=== PATIENT | male | born 1955 | race Caucasian/White ===

== ENCOUNTER 2019-01-13 21:58 | Observation (INO) | payer OTHER ==
[~2019-01-13] VITALS: Ht 182.9 cm; Wt 93.9 kg
[~2019-01-13 21:58] MED LIST: CEPH500 PO; HYDACE5 PO; MULVITMIND
[2019-01-14 00:40] LABS: BASOPHILS ABSOLUTE AUTO 0.05 K/mm3 (0.00-0.23); BASOPHILS PERCENT AUTO 0 % (0-2); EOSINOPHILS ABSOLUTE AUTO 0.11 K/mm3 (0.00-0.68); EOSINOPHILS PERCENT AUTO 1 % (0-6); Hemoglobin 15.3 g/dL (13.5-17.5); IMMATURE GRAN ABSOLUTE AUTO 0.05 K/mm3 (0.00-0.10); IMMATURE GRAN PERCENT AUTO 0 % (0-1); LYMPHOCYTES ABSOLUTE AUTO 1.28 K/mm3 (0.84-5.20); LYMPHOCYTES PERCENT AUTO 11 % (21-46); MONOCYTES ABSOLUTE AUTO 0.59 K/mm3 (0.16-1.47); MONOCYTES PERCENT AUTO 5 % (4-13); Mean Corpuscular HGB Conc 32.6 g/dL (31.5-36.5); Mean Corpuscular Volume 95 fL (80-100); Mean Platelet Volume 10.8 fL (9.1-12.4); NEUTROPHILS ABSOLUTE AUTO 9.16 K/mm3 (1.96-9.15); NEUTROPHILS PERCENT AUTO 82 % (41-73); Platelet Count 257 K/mm3 (150-400); RDW Coefficient Variation 12.7 % (11.7-14.2); Red Blood Cell Count 4.94 M/mm3 (4.30-5.90); White Blood Cell Count 11.24 K/mm3 (4.00-11.30)
[2019-01-14 00:58] LABS: Alanine Aminotransfer (ALT/SGP 34 U/L (12-78); Albumin, Blood 3.5 g/dL (3.4-5.0); Albumin/Globulin Ratio 0.9 (0.8-1.8); Alk Phos 74 U/L (50-136); Anion Gap 5 mmol/L (6-16); Aspartate Aminotrans (AST/SGOT 17 U/L (12-37); Bilirubin, Total 0.4 mg/dL (0.1-1.0); Blood Urea Nitrogen 13 mg/dL (8-24); Bun/Creatinine Ratio 15.2 (12.0-20.0); CO2, Blood 28 mmol/L (21-32); Calcium, Blood 8.5 mg/dL (8.5-10.1); Chloride, Blood 109 mmol/L (98-108); Creatinine, Blood 0.86 mg/dL (0.60-1.20); Globulin, Blood 3.8 g/dL (2.2-4.0); Glomerular Filtration Rate >60 (60-); Glucose, Blood 131 mg/dL (70-99); Potassium, Blood 4.3 mmol/L (3.5-5.5); Sodium, Blood 142 mmol/L (136-145); Total Protein, Blood 7.3 g/dL (6.4-8.2)
[2019-01-14 04:48] LABS: Source, Urine Clean Catch
[2019-01-14 04:50] LABS: Bilirubin, Urine Neg (Neg); Blood, Urine Neg (Neg); Glucose Qualitative, Urine Neg (Neg); Ketones, Urine Neg (Neg); Leukocyte Esterase, Urine Neg (Neg); Nitrite, Urine Neg (Neg); Protein, Urine Neg (Neg); Urobilinogen, Urine NORM (Normal)
[2019-01-14 04:51] LABS: Appearance, Urine Clear (Clear); Color, Urine Yellow (P-Yellow)
--- NOTE | 2019-01-14 06:46 | NUR ---
PT NEW ADMIT THIS AM FOR RUE FX. PT VSS SINCE ARRIVING TO FLOOR. PAIN MGD PER EMAR W/REP RELIEF. DRESSING CDI, ARM IN DLING, PT REP NO CHANGES IN SENSATION. PT NPO SINCE ARRIVING TO FLOOR, PLAN FOR OR THIS AM. PRESENT IN ROOM. WILL CONT TO MONITOR UNTIL REP GIVEN TO ONCOMING RN.
--- NOTE | 2019-01-14 12:25 | NUR ---
PATIENT TO OR. HAS CONT TO DENY NEED FOR PAIN MED. ACCOMPANYING.
--- NOTE | 2019-01-14 12:33 | NUR ---
History, Chart, Medications and Allergies reviewed before start of procedure.Lungs clear T/O to Auscultation. Patient confirms NPO status and agrees with scheduled surgery. Pre-Op teaching done. Pt verbalizes understanding.
--- NOTE | 2019-01-14 15:18 | NUR ---
01/14/19 1518 Jonnie Hardy ASSUMED CARE OF PATIENT [id number]
--- NOTE | 2019-01-14 18:40 | NUR ---
PATIENT RETURNED TO ROOM FROM PACU AT THIS TIME. AWAKE, GROGGY. TRANSFERRED TO BED. RUE ELEVATED ON PILLOWS. FINGERS SWOLLEN, PINK AND WARM. WIGGLES SMALL FINGER SLIGHLTY (PATIENT HAD A BLOCK.) VSS. O2 @ 2L TO KEEP SATS <90%. DENIES PAIN, NAUSEA. FAMILY AT BEDSIDE. CALL LIGHT IN REACH.
--- NOTE | 2019-01-15 06:31 | NUR ---
POD 1 S/P ORIF OF RFA. PT VSS T/O NIGHT, O2 TITRATED FROM 4L OXYMIZER TO 2LNC. I/S USE ENCOURAGED. DRESSING CDI, SLING IN PLACE. FINGERS REMAIN SWOLLEN AND NUMB W/NO CHANGES NOTED; CAP REFILL WNL, PT WEAKLY WIGGLES FINGERS. ARM ELEVATED IN BED. NEW BRUISING NOTED TO LEFT LOWER BACK. PAIN MGD PER EMAR. PT WALI REG PO, NO C/O N/V, IS VOIDING URINE W/O DIFFICULTY. PT UP OOB W/SBA, WALI WELL. PT USING CALL LIGHT FOR ASSISTANCE, WILL CONT TO MONITOR UNTIL REP GIVEN TO ONCOMING RN.
--- NOTE | 2019-01-15 14:21 | NUR ---
ASSUMED CARE OF PATIENT AT THIS TIME. PT UP TO CHAIR. PAIN TOLERABLE. PT STATES HE WOULD LIKE TO GO HOME TODAY. AWAITING DOCTOR ROUNDING.
[2019-01-15] MEDS ORDERED: OXYC5 PO (14:47)
[2019-01-15] MEDS ORDERED: CEPH500 PO (14:48)
--- NOTE | 2019-01-15 15:55 | NUR ---
DISCHARGE: PT DC TO HOME AT THIS TIME WITH SPOUSE. VERBALIZED UNDERSTANDING OF INSTRUCTIONS, FOLLOW UP, PROBLEMS TO REPORT AND MEDICATIONS. SCRIPTS GIVEN. IV'S DC'D WNL. PT LEFT VIA WHEELCHAIR TO CAR WITH BELONGINGS.
== END 2019-01-15 16:03 | disposition home or self-care (01) ==
LOC: ER 21:58 → SURS 21:59 → ER 01-14 04:09 → SURS 01-14 04:09 → ER 01-15 04:09 → SURS 01-15 04:09
PROVIDERS: Emergency Medicine; Orthopaedic Surgery; ADMIT Orthopaedic Surgery
PROC: 0PSK04Z Reposition Right Ulna with Internal Fixation Device, Open Approach (ICD-10-PCS; 2019-01-14)
PROC: 0PSH04Z Reposition Right Radius with Internal Fixation Device, Open Approach (ICD-10-PCS; principal; 2019-01-14 12:30)
DX: S52.501A Unspecified fracture of the lower end of right radius, initial encounter for closed fracture (principal); S52.601A Unspecified fracture of lower end of right ulna, initial encounter for closed fracture; Z23 Encounter for immunization; W01.0XXA Fall on same level from slipping, tripping and stumbling without subsequent striking against object, initial encounter; Z91.81 History of falling; Y93.01 Activity, walking, marching and hiking; Y92.89 Other specified places as the place of occurrence of the external cause; Y99.0 Civilian activity done for income or pay
CPT/HCPCS: 25605; 70450; 71045; 71260; 72125; 73090; 74177; 76000; 80053; 81003; 85025; 90471; 90714; 96365-59; 96375-59; 96376-59; 99153; 99285-25; C1713; J0690; J1170; J1885; J2250; J2370; J2405; J2550; J2704; J3010; J7030; J7120; Q9967

== ENCOUNTER → 2021-05-07 | Outpatient (CLI) | payer SELFPAY ==
[~2021-05-07] MED LIST changes: +OXYC5 PO
[2021-05-07 10:40] LABS: BASOPHILS ABSOLUTE AUTO 0.06 K/mm3 (0.00-0.23); BASOPHILS PERCENT AUTO 1 % (0-2); EOSINOPHILS ABSOLUTE AUTO 0.29 K/mm3 (0.00-0.68); EOSINOPHILS PERCENT AUTO 5 % (0-6); Hematocrit 46.8 % (37.0-53.0); Hemoglobin 16.1 g/dL (13.5-17.5); IMMATURE GRAN ABSOLUTE AUTO 0.01 K/mm3 (0.00-0.10); IMMATURE GRAN PERCENT AUTO 0 % (0-1); LYMPHOCYTES ABSOLUTE AUTO 2.25 K/mm3 (0.84-5.20); LYMPHOCYTES PERCENT AUTO 35 % (21-46); MONOCYTES ABSOLUTE AUTO 0.42 K/mm3 (0.16-1.47); MONOCYTES PERCENT AUTO 7 % (4-13); Mean Corpuscular HGB 30.7 pg (26.0-34.0); Mean Corpuscular HGB Conc 34.4 g/dL (31.5-36.5); Mean Corpuscular Volume 89 fL (80-100); Mean Platelet Volume 10.2 fL (9.1-12.4); NEUTROPHILS ABSOLUTE AUTO 3.44 K/mm3 (1.96-9.15); NEUTROPHILS PERCENT AUTO 53 % (41-73); Platelet Count 264 K/mm3 (150-400); RDW Standard Deviation 42.5 fL (35.1-46.3); Red Blood Cell Count 5.24 M/mm3 (4.30-5.90); White Blood Cell Count 6.47 K/mm3 (4.00-11.30)
[2021-05-07 11:04] LABS: Alanine Aminotransfer (ALT/SGP 33 U/L (12-78); Albumin, Blood 3.6 g/dL (3.4-5.0); Albumin/Globulin Ratio 0.9 (0.8-1.8); Alk Phos 101 U/L (40-126); Anion Gap 11 mmol/L (6-16); Aspartate Aminotrans (AST/SGOT 15 U/L (12-37); Bilirubin, Total 0.5 mg/dL (0.1-1.0); Blood Urea Nitrogen 11 mg/dL (8-24); Bun/Creatinine Ratio 11.1 (12.0-20.0); CO2, Blood 28 mmol/L (21-32); Calcium, Blood 9.1 mg/dL (8.5-10.1); Chloride, Blood 102 mmol/L (98-108); Creatinine, Blood 0.99 mg/dL (0.60-1.20); Globulin, Blood 3.9 g/dL (2.2-4.0); Glomerular Filtration Rate >60 (60-); Glucose, Blood 95 mg/dL (70-99); Potassium, Blood 4.4 mmol/L (3.5-5.5); Sodium, Blood 141 mmol/L (136-145); Thyroid Stimulating Hormone 2.027 uIU/mL (0.360-4.800); Total Protein, Blood 7.5 g/dL (6.4-8.2)
== END | disposition home or self-care (01) ==
LOC: LAB SHORT 10:36
PROVIDERS: Physician Assistant
DX: R53.83 Other fatigue (principal); R20.2 Paresthesia of skin
CPT/HCPCS: 80053; 84443; 85025